=== PATIENT | male | born 1975 | race Two or more races ===

== ENCOUNTER 2017-07-31 07:12 | Day surgery (SDC) | payer OTHER | END 2017-07-31 11:30 | disposition home or self-care (01) | LOC: AMB-ENDOS 07:12 | DX: D12.0 Benign neoplasm of cecum (principal); D12.5 Benign neoplasm of sigmoid colon; K64.8 Other hemorrhoids; K57.32 Diverticulitis of large intestine without perforation or abscess without bleeding ==

== ENCOUNTER 2023-06-13 13:18 | Inpatient (IN) | payer OTHER ==
[~2023-06-13] VITALS: Ht 109.2 cm; Wt 117.9 kg
[2023-06-13] MEDS ORDERED: COZAAR100 MG (13:20)
--- NOTE | 2023-06-13 13:27 | NUR ---
SE RECIBE PTE ALERTA Y ORIENTADO X3. PTE PRESENTA DOLOR ABDOMINAL DESDE EL RAHUL DE FAUST[place] SKY QUE EN EL RAHUL DE HOY SE INTENSIFICO Y JSOE NO PUEDE NI CAMINAR. SE MIDEN S/V BP 170/100 SE REALIZA EKG Y SE PRESENTA. SE UBICA A PTE EN OBSERVACION.
[2023-06-13] MEDS ORDERED: FAMOTIDINE/PF 20 MG/2 ML VIAL IV ONE (16:15)
[2023-06-13] MEDS ORDERED: ONDANSETRON HCL 2 MG/ML VIAL IV ONE (16:15)
[2023-06-13] MEDS ORDERED: 0.9 % SODIUM CHLORIDE 500 ML IV SCH (16:15)
[2023-06-13] MEDS ORDERED: MORPHINE SULFATE 4 MG/ML VIAL IV ONE (16:15)
--- NOTE | 2023-06-13 16:19 | NUR ---
RN CELESTE ORIENTA PTE SOBRE TRATAMIENTO A REALIZAR EL CUAL REFIERE ENTENDER Y ACEPTAR. SE CANALIZA BRAZO JENN Y SE MARTHA MUESTRAS Y SE ADMINISTRA MEDICAMENTO POR ORDEN MEDICA BAJO MEDIDAS ASEPTICAS. PTE PENDIENTE A CT
[2023-06-13 16:35] LABS: HEMATOCRIT 45.9 % (39.0-48.0); HEMOGLOBIN 15.9 g/dL (13-16.00); MEAN CELL VOLUME 91.8 fL (80.0-100.00); MEAN CORPUSCULAR HEMOGLOBIN 31.7 pg (27.00-32.0); MEAN CORPUSCULAR HGB CONC 34.6 g/dl (32.0-36.0); PLATELET COUNT 218 K/uL (150-450); RED CELL DISTRIBUTION WIDTH 13.9 % (11.5-14.5)
[2023-06-13 16:52] LABS: CALCIUM 9.1 mg/dL (8.5-10.1); CREATININE SERUM 1.27 mg/dL (0.70-1.30); GFR 61.05; POTASSIUM 3.56 mEq/L (3.5-5.1)
[2023-06-13 16:56] LABS: INR 1.36; PARTIAL THROMBOPLASTIN TIME 31.6 SECONDS (22.0-34.0)
[2023-06-13 17:12] LABS: URINE APPEARANCE Clear; URINE BILIRRUBIN Small (NEGATIVE); URINE BLOOD Large; URINE COLOR Orange; URINE GLUCOSE Negative (NEGATIVE); URINE LEUKOCYTE Small; URINE NITRATE Positive
[2023-06-13 17:15] LABS: URINE BACTERIA 75.5 uL (0.0-1933); URINE EPITHELIAL CELLS 13.4 uL (0.0-38.8); URINE RBC 562.2 uL (0.0-20.8); URINE WBC 13.2 uL (0.0-23.2)
[2023-06-13 17:32] LABS: URINE PROTEIN 300 (NEGATIVE)
[2023-06-13] MEDS ORDERED: PIPERACILLIN/TAZOBACTAM SODIUM 3.375 GM VIAL IV ONE (19:45)
[2023-06-13] MEDS ORDERED: ACETAMINOPHEN 500 MG GEL..CAP PO PRN (20:15)
[2023-06-13] MEDS ORDERED: ENALAPRILAT DIHYDRATE 1.25 MG/ML VIAL IV PRN (20:15)
[2023-06-13] MEDS ORDERED: 0.9 % SODIUM CHLORIDE 1,000 ML IV SCH (20:15)
[2023-06-13] MEDS ORDERED: ONDANSETRON HCL 4 MG in 0.9 % SODIUM CHLORIDE 50 ML IV PRN (20:15)
[2023-06-13 21:41] LABS: MAGNESIUM 1.8 mg/dL (1.8-2.4)
[2023-06-13 21:43] LABS: C-REACTIVE PROTEIN 24.5 MG/DL (0.00-0.29)
[2023-06-13] MEDS ORDERED: KETOROLAC TROMETHAMINE 15 MG VIAL IV STA (21:51)
[2023-06-13 22:22] LABS: ABG PH 7.387 (7.35-7.45); ABG PO2 98.9 mmHg (80-100); ABG pCO2 38.7 mmHg (35-45); BASE EXCESS -1.9 mmol/l; BICARBONATE 22.8 mmol/l (23-25); SaO2 97.5 %; o2 36 %
[2023-06-13 22:23] LABS: allen test SATISFACTORY; puncture site RADIAL RIGHT
[2023-06-13] MEDS ORDERED: NITROGLYCERIN IN 5 % DEXTROSE 250 ML IV SCH (22:40)
[2023-06-13] MEDS ORDERED: MORPHINE SULFATE 2 MG/ML CARTRIDGE IV ONE (22:45)
[2023-06-13] MEDS ORDERED: hydrOXYzine PAMOATE 25 MG CAPSULE PO ONE (23:15)
[2023-06-14] MEDS ORDERED: PIPERACILLIN/TAZOBACTAM SODIUM 3.375 GM in DEXTROSE 5 % IN WATER 100 ML IV SCH
[2023-06-14] MEDS ORDERED: MORPHINE SULFATE 4 MG/ML CARTRIDGE IV SCH (02:00)
[2023-06-14] MEDS ORDERED: FAMOTIDINE/PF 20 MG in 0.9 % SODIUM CHLORIDE 8 ML IV PUSH SCH ×2 (09:00→21:00)
[2023-06-14] MEDS ORDERED: ENOXAPARIN SODIUM 40 MG/0.4 ML SYRINGE SUBCUTANEO SCH (09:00)
[2023-06-14] MEDS ORDERED: MEROPENEM 500 MG/VIAL VIAL IV SCH (14:00)
[2023-06-14] MEDS ORDERED: LEVALBUTEROL HCL 0.63 MG/3 ML SOLUTION IH SCH (14:06)
[2023-06-14] MEDS ORDERED: MEPERIDINE HCL/PF 50 MG/ML VIAL IV SCH (14:06)
[2023-06-14] MEDS ORDERED: MEPERIDINE HCL/PF 25 MG/ML VIAL IV ONE (14:15)
[2023-06-14 14:59] LABS: ABG PH 7.368 (7.35-7.45); ABG PO2 64.9 mmHg (80-100); ABG pCO2 46.8 mmHg (35-45); BASE EXCESS -0.9 mmol/l; BICARBONATE 24.6 mmol/l (23-25); SaO2 91.6 %; allen test SATISFACTORY; puncture site RADIAL RIGHT
[2023-06-14 15:00] LABS: o2 21 %
[2023-06-14] MEDS ORDERED: VANCOMYCIN HCL 5 MG/ML REDILUIDO IV SCH (17:00)
[2023-06-14] MEDS ORDERED: IPRATROPIUM BROMIDE 0.5 MG/2.5 ML AMPUL.NEB IH SCH (17:00)
[2023-06-14] MEDS ORDERED: AA 4.25%/CAL/LYTES/DEXT 5% 1,000 ML PERIFERAL SCH (17:00)
[2023-06-14 17:01] LABS: CALCIUM 8.3 mg/dL (8.5-10.1); CHOL HDL RATIO 3.3 (0-5.0); CREATININE SERUM 1.19 mg/dL (0.70-1.30); GFR 65.81; POTASSIUM 3.63 mEq/L (3.5-5.1)
[2023-06-14] MEDS ORDERED: METHYLPREDNISOLONE SOD SUCC 125 MG VIAL IV ONE (18:15)
[2023-06-14] MEDS ORDERED: FUROsemide 20 MG/2 ML VIAL IV ONE (19:45)
[2023-06-15 06:14] LABS: HEMATOCRIT 37.8 % (39.0-48.0); HEMOGLOBIN 13.1 g/dL (13-16.00); MEAN CELL VOLUME 92.2 fL (80.0-100.00); MEAN CORPUSCULAR HEMOGLOBIN 31.9 pg (27.00-32.0); MEAN CORPUSCULAR HGB CONC 34.5 g/dl (32.0-36.0); PLATELET COUNT 220 K/uL (150-450); RED CELL DISTRIBUTION WIDTH 14.1 % (11.5-14.5)
[2023-06-15 06:36] LABS: ALBUMIN 2.5 gm/dL (3.4-5.0); BILIRUBIN TOTAL 0.51 mg/dL (0.3-1.2); CALCIUM 8.2 mg/dL (8.5-10.1); CREATININE SERUM 1.1 mg/dL (0.70-1.30); GFR 72.06; GLOBULINA 3.4 G/DL (2.4-3.5); MAGNESIUM 2.3 mg/dL (1.8-2.4); POTASSIUM 3.71 mEq/L (3.5-5.1); TOTAL PROTEIN 5.9 gm/dL (6.4-8.2)
[2023-06-15 06:37] LABS: C-REACTIVE PROTEIN 31.7 MG/DL (0.00-0.29)
[2023-06-15 06:39] LABS: PHOSPHOROUS 1.3 mg/dL (2.5-4.9)
[2023-06-15 11:06] LABS: PLATELET ESTIMATE NORMAL (NORMAL)
[2023-06-15] MEDS ORDERED: POTASSIUM PHOS,M-BASIC-D-BASIC 15 MM in 0.9 % SODIUM CHLORIDE 250 ML IV ONE (12:00)
[2023-06-16] MEDS ORDERED: ENALAPRILAT DIHYDRATE 1.25 MG/ML VIAL IV SCH (01:00)
[2023-06-16] MEDS ORDERED: PANTOPRAZOLE SODIUM 40 MG/VIAL VIAL IV SCH (09:45)
[2023-06-16 10:07] LABS: HEMATOCRIT 39.9 % (39.0-48.0); HEMOGLOBIN 13.2 g/dL (13-16.00); MEAN CELL VOLUME 91.6 fL (80.0-100.00); MEAN CORPUSCULAR HEMOGLOBIN 30.4 pg (27.00-32.0); MEAN CORPUSCULAR HGB CONC 33.2 g/dl (32.0-36.0); PLATELET COUNT 273 K/uL (150-450); RED BLOOD COUNT 4.36 M/uL (4.00-6.00); RED CELL DISTRIBUTION WIDTH 14.5 % (11.5-14.5)
[2023-06-16 10:37] LABS: ALBUMIN 2.6 gm/dL (3.4-5.0); BILIRUBIN TOTAL 0.44 mg/dL (0.3-1.2); CALCIUM 8.3 mg/dL (8.5-10.1); CREATININE SERUM 0.92 mg/dL (0.70-1.30); GFR 88.57; GLOBULINA 3.5 G/DL (2.4-3.5); MAGNESIUM 2.3 mg/dL (1.8-2.4); POTASSIUM 3.53 mEq/L (3.5-5.1); TOTAL PROTEIN 6.1 gm/dL (6.4-8.2)
[2023-06-16 10:58] LABS: C-REACTIVE PROTEIN 17.9 MG/DL (0.00-0.29); PHOSPHOROUS 1.6 mg/dL (2.5-4.9)
[2023-06-16] MEDS ORDERED: MEPERIDINE HCL/PF 50 MG/ML VIAL IV SCH (13:00)
[2023-06-16] MEDS ORDERED: POTASSIUM PHOS,M-BASIC-D-BASIC 18 MM in 0.9 % SODIUM CHLORIDE 250 ML IV ONE (13:45)
[2023-06-16] MEDS ORDERED: CLEVIDIPINE BUTYRATE 100 ML IV SCH (14:00)
[2023-06-17] MEDS ORDERED: METHYLPREDNISOLONE SOD SUCC 40 MG VIAL IV STA (10:51)
[2023-06-17] MEDS ORDERED: LEVALBUTEROL HCL 0.63 MG/3 ML SOLUTION IH SCH (12:00)
[2023-06-17] MEDS ORDERED: IPRATROPIUM BROMIDE 0.5 MG/2.5 ML AMPUL.NEB IH SCH (12:00)
[2023-06-17] MEDS ORDERED: FUROsemide 40 MG/4 ML VIAL IV STA (12:18)
[2023-06-17] MEDS ORDERED: ENALAPRILAT DIHYDRATE 1.25 MG/ML VIAL IV SCH (18:00)
[2023-06-18 06:29] LABS: HEMOGLOBIN 16.4 g/dL (13-16.00); MEAN CELL VOLUME 91.1 fL (80.0-100.00); MEAN CORPUSCULAR HEMOGLOBIN 38.3 pg (27.00-32.0); PLATELET COUNT 374 K/uL (150-450); RED BLOOD COUNT 4.28 M/uL (4.00-6.00); RED CELL DISTRIBUTION WIDTH 15.4 % (11.5-14.5)
[2023-06-18] MEDS ORDERED: SODIUM CHLORIDE 0.45 % 1,000 ML IV SCH (08:15)
[2023-06-18] MEDS ORDERED: MORPHINE SULFATE 4 MG/ML VIAL IV SCH (13:51)
[2023-06-18] MEDS ORDERED: VANCOMYCIN HCL 5 MG/ML REDILUIDO IV SCH (17:00)
[2023-06-19] MEDS ORDERED: CHLORHEXIDINE GLUCONATE 120 ML BOTTLE TOP ONE (11:00)
[2023-06-20 08:01] LABS: HEMATOCRIT 39.9 % (39.0-48.0); HEMOGLOBIN 13.5 g/dL (13-16.00); MEAN CELL VOLUME 91.5 fL (80.0-100.00); MEAN CORPUSCULAR HEMOGLOBIN 31.1 pg (27.00-32.0); PLATELET COUNT 182 K/uL (150-450); RED BLOOD COUNT 4.35 M/uL (4.00-6.00); RED CELL DISTRIBUTION WIDTH 14.9 % (11.5-14.5)
[2023-06-20 08:22] LABS: ALBUMIN 2.3 gm/dL (3.4-5.0); BILIRUBIN TOTAL 0.86 mg/dL (0.3-1.2); CALCIUM 7.8 mg/dL (8.5-10.1); CREATININE SERUM 0.86 mg/dL (0.70-1.30); GFR 95.74; GLOBULINA 3.4 G/DL (2.4-3.5); POTASSIUM 3.72 mEq/L (3.5-5.1); TOTAL PROTEIN 5.7 gm/dL (6.4-8.2)
[2023-06-20] MEDS ORDERED: fentaNYL CITRATE 50 MCG/ML AMPUL IV PUSH ONE ×2 (17:00→20:00)
[2023-06-20] MEDS ORDERED: MIDAZOLAM HCL 2 MG/2 ML VIAL IV PUSH ONE (17:00)
[2023-06-20] MEDS ORDERED: MORPHINE SULFATE 4 MG/ML CARTRIDGE IV SCH (17:00)
[2023-06-20] MEDS ORDERED: LOSARTAN POTASSIUM 50 MG TABLET PO SCH (21:24)
[2023-06-21 06:28] LABS: HEMATOCRIT 37.7 % (39.0-48.0); HEMOGLOBIN 12.9 g/dL (13-16.00); MEAN CELL VOLUME 91.8 fL (80.0-100.00); MEAN CORPUSCULAR HEMOGLOBIN 31.4 pg (27.00-32.0); MEAN CORPUSCULAR HGB CONC 34.2 g/dl (32.0-36.0); PLATELET COUNT 146 K/uL (150-450); RED BLOOD COUNT 4.11 M/uL (4.00-6.00); RED CELL DISTRIBUTION WIDTH 14.5 % (11.5-14.5)
[2023-06-21 06:57] LABS: CALCIUM 7.6 mg/dL (8.5-10.1); CREATININE SERUM 0.82 mg/dL (0.70-1.30); GFR 101.15; POTASSIUM 3.48 mEq/L (3.5-5.1)
[2023-06-21] MEDS ORDERED: NIFEDIPINE 30 MG TAB.SA.OSM PO SCH (09:00)
[2023-06-21] MEDS ORDERED: LOSARTAN POTASSIUM 50 MG TABLET PO ONE (14:15)
[2023-06-21] MEDS ORDERED: hydrALAZINE HCL 20 MG VIAL IV SCH (18:00)
[2023-06-22 07:02] LABS: HEMATOCRIT 35.2 % (39.0-48.0); HEMOGLOBIN 12.2 g/dL (13-16.00); MEAN CELL VOLUME 90.5 fL (80.0-100.00); MEAN CORPUSCULAR HEMOGLOBIN 31.4 pg (27.00-32.0); MEAN CORPUSCULAR HGB CONC 34.7 g/dl (32.0-36.0); RED BLOOD COUNT 3.89 M/uL (4.00-6.00); RED CELL DISTRIBUTION WIDTH 14.6 % (11.5-14.5)
[2023-06-22 07:05] LABS: PLATELET COUNT 129 K/uL (150-450)
[2023-06-22 07:24] LABS: CALCIUM 7.6 mg/dL (8.5-10.1); CREATININE SERUM 0.75 mg/dL (0.70-1.30); GFR 112.12; MAGNESIUM 2.9 mg/dL (1.8-2.4); PHOSPHOROUS 3.3 mg/dL (2.5-4.9); POTASSIUM 3.61 mEq/L (3.5-5.1)
[2023-06-22] MEDS ORDERED: NIFEDIPINE 60 MG TAB.SA.OSM PO SCH (09:00)
[2023-06-22] MEDS ORDERED: LOSARTAN POTASSIUM 50 MG TABLET PO SCH (09:00)
[2023-06-23] MEDS ORDERED: DOXAZOSIN MESYLATE 2 MG TABLET PO SCH (17:00)
[2023-06-24 07:29] LABS: HEMATOCRIT 33.6 % (39.0-48.0); HEMOGLOBIN 11.5 g/dL (13-16.00); MEAN CELL VOLUME 92.3 fL (80.0-100.00); MEAN CORPUSCULAR HEMOGLOBIN 31.6 pg (27.00-32.0); MEAN CORPUSCULAR HGB CONC 34.3 g/dl (32.0-36.0); PLATELET COUNT 140 K/uL (150-450); RED BLOOD COUNT 3.64 M/uL (4.00-6.00); RED CELL DISTRIBUTION WIDTH 14.4 % (11.5-14.5)
[2023-06-24 07:31] LABS: CALCIUM 7.7 mg/dL (8.5-10.1); CREATININE SERUM 0.7 mg/dL (0.70-1.30); GFR 121.41; MAGNESIUM 2.3 mg/dL (1.8-2.4); PHOSPHOROUS 2.8 mg/dL (2.5-4.9); POTASSIUM 3.57 mEq/L (3.5-5.1)
[2023-06-24] MEDS ORDERED: Cyanocobalamin/Mecobalamin 1 TAB.SL SL SCH (09:00)
[2023-06-24] MEDS ORDERED: SOD FERRIC GLUC COMPLX/SUCROSE 62.5 MG in 0.9 % SODIUM CHLORIDE 50 ML IV SCH (09:00)
[2023-06-24 09:08] LABS: MANUAL PLATELET COUNT 246
[2023-06-25] MEDS ORDERED: MORPHINE SULFATE 4 MG/ML VIAL IV SCH (01:00)
[2023-06-25 06:17] LABS: HEMATOCRIT 33.1 % (39.0-48.0); HEMOGLOBIN 11.3 g/dL (13-16.00); MEAN CORPUSCULAR HEMOGLOBIN 31.1 pg (27.00-32.0); MEAN CORPUSCULAR HGB CONC 34.2 g/dl (32.0-36.0); PLATELET COUNT 147 K/uL (150-450); RED BLOOD COUNT 3.64 M/uL (4.00-6.00); RED CELL DISTRIBUTION WIDTH 14.2 % (11.5-14.5)
[2023-06-25 06:52] LABS: ALBUMIN 2.2 gm/dL (3.4-5.0); BILIRUBIN TOTAL 0.84 mg/dL (0.3-1.2); BILIRUBIN,CONJUGATED 0.28 mg/dL (0.0-0.2); BILIRUBIN,UNCONJUGATED 0.56 mg/dL (0.0-0.6); CALCIUM 7.8 mg/dL (8.5-10.1); CHOL HDL RATIO 5.4 (0-5.0); CREATININE SERUM 0.71 mg/dL (0.70-1.30); GFR 119.44; GLOBULINA 3.5 G/DL (2.4-3.5); MAGNESIUM 2.2 mg/dL (1.8-2.4); POTASSIUM 3.63 mEq/L (3.5-5.1); TOTAL PROTEIN 5.7 gm/dL (6.4-8.2)
[2023-06-25 07:11] LABS: INR 1.13; PARTIAL THROMBOPLASTIN TIME 25.9 SECONDS (22.0-34.0); PROTHROMBIN TIME 11.8 SECONDS (9.0-11.5)
[2023-06-25 08:41] LABS: UREA CLEARANCE 55.8 ML/MIN
[2023-06-25] MEDS ORDERED: MORPHINE SULFATE 4 MG/ML CARTRIDGE IV SCH (09:00)
[2023-06-25] MEDS ORDERED: FAMOTIDINE/PF 20 MG in 0.9 % SODIUM CHLORIDE 100 ML IV SCH (09:00)
[2023-06-25] MEDS ORDERED: IOHEXOL 350 mgI/ML 50ML BOTT PO ONE (09:45)
[2023-06-25] MEDS ORDERED: LACTOBACILLUS ACIDOPHILUS 1 CAP CAP PO SCH (14:27)
[2023-06-25] MEDS ORDERED: AMINO ACIDS 1 EACH TABLET PO SCH (17:00)
[2023-06-25] MEDS ORDERED: CEFTRIAXONE SODIUM 2,000 MG VIAL IV SCH (17:00)
[2023-06-25] MEDS ORDERED: METRONIDAZOLE/SODIUM CHLORIDE 100 ML IV SCH (17:00)
[2023-06-25] MEDS ORDERED: FUROsemide 20 MG/2 ML VIAL IV SCH (18:25)
[2023-06-26] MEDS ORDERED: LOSARTAN POTASSIUM 100 MG TABLET PO SCH (09:00)
[2023-06-26] MEDS ORDERED: NIFEDIPINE 90 MG TAB.SA.OSM PO SCH (09:00)
[2023-06-28] MEDS ORDERED: SOD FERRIC GLUC COMPLX/SUCROSE 62.5 MG/5 ML AMPUL IV ONE (08:25)
[2023-06-29 06:54] LABS: HEMOGLOBIN 11.3 g/dL (13-16.00); MEAN CORPUSCULAR HEMOGLOBIN 31.1 pg (27.00-32.0); MEAN CORPUSCULAR HGB CONC 34.2 g/dl (32.0-36.0); PLATELET COUNT 300 K/uL (150-450); RED BLOOD COUNT 3.63 M/uL (4.00-6.00); RED CELL DISTRIBUTION WIDTH 14.8 % (11.5-14.5)
[2023-06-29 07:09] LABS: ALBUMIN 2.5 gm/dL (3.4-5.0); BILIRUBIN TOTAL 0.47 mg/dL (0.3-1.2); CALCIUM 8.3 mg/dL (8.5-10.1); CREATININE SERUM 0.89 mg/dL (0.70-1.30); GFR 92.02; GLOBULINA 3.6 G/DL (2.4-3.5); MAGNESIUM 2.3 mg/dL (1.8-2.4); PHOSPHOROUS 3.4 mg/dL (2.5-4.9); POTASSIUM 3.99 mEq/L (3.5-5.1); TOTAL PROTEIN 6.1 gm/dL (6.4-8.2)
[2023-06-29 07:15] LABS: C-REACTIVE PROTEIN 7.28 MG/DL (0.00-0.29)
[2023-06-29] MEDS ORDERED: MIDAZOLAM HCL 2 MG/2 ML VIAL IV ONE (20:15)
[2023-06-29] MEDS ORDERED: FentaNYL CITRATE/PF 50MCG/ML 2ML VIAL IJ ONE (20:15)
[2023-06-29] MEDS ORDERED: MORPHINE SULFATE 2 MG/ML CARTRIDGE IV ONE (21:15)
[2023-06-30] MEDS ORDERED: MORPHINE SULFATE 4 MG/ML CARTRIDGE IV PRN (11:15)
[2023-06-30] MEDS ORDERED: ACETAMINOPHEN 500 MG GEL..CAP PO SCH (12:00)
[2023-07-02 07:03] LABS: CALCIUM 8.5 mg/dL (8.5-10.1); CREATININE SERUM 0.83 mg/dL (0.70-1.30); GFR 99.74; POTASSIUM 3.91 mEq/L (3.5-5.1)
[2023-07-02 07:33] LABS: HEMOGLOBIN 11.2 g/dL (13-16.00); MEAN CELL VOLUME 91.4 fL (80.0-100.00); MEAN CORPUSCULAR HGB CONC 33.9 g/dl (32.0-36.0); PLATELET COUNT 365 K/uL (150-450); RED BLOOD COUNT 3.61 M/uL (4.00-6.00); RED CELL DISTRIBUTION WIDTH 14.6 % (11.5-14.5)
[2023-07-02] MEDS ORDERED: VANCOMYCIN HCL 5 MG/ML REDILUIDO IV SCH (17:00)
[2023-07-03] MEDS ORDERED: VANCOMYCIN HCL 5 MG/ML REDILUIDO IV SCH (09:00)
[2023-07-05 05:33] LABS: HEMATOCRIT 31.8 % (39.0-48.0); MEAN CELL VOLUME 92.3 fL (80.0-100.00); MEAN CORPUSCULAR HGB CONC 35.2 g/dl (32.0-36.0); PLATELET COUNT 328 K/uL (150-450); RED BLOOD COUNT 3.45 M/uL (4.00-6.00); RED CELL DISTRIBUTION WIDTH 14.7 % (11.5-14.5)
[2023-07-05 05:34] LABS: HEMOGLOBIN 11.2 g/dL (13-16.00); MEAN CORPUSCULAR HEMOGLOBIN 32.4 pg (27.00-32.0)
[2023-07-05 06:00] LABS: ALBUMIN 2.6 gm/dL (3.4-5.0); BILIRUBIN TOTAL 0.33 mg/dL (0.3-1.2); CALCIUM 8.5 mg/dL (8.5-10.1); CREATININE SERUM 0.88 mg/dL (0.70-1.30); GFR 93.23; GLOBULINA 3.4 G/DL (2.4-3.5); MAGNESIUM 1.6 mg/dL (1.8-2.4); PHOSPHOROUS 3.7 mg/dL (2.5-4.9); POTASSIUM 3.74 mEq/L (3.5-5.1)
[2023-07-05 06:24] LABS: C-REACTIVE PROTEIN 1.55 MG/DL (0.00-0.29)
[2023-07-05] MEDS ORDERED: IOHEXOL 350 mgI/ML 50ML BOTT PO ONE (12:45)
[2023-07-05] MEDS ORDERED: MAGNESIUM SULFATE IN WATER 4 GM/100 ML PIGGYBACK IV ONE (18:22)
[2023-07-05] MEDS ORDERED: FAMOtidine 20 MG TABLET PO SCH (21:00)
== END 2023-07-07 13:13 | disposition home or self-care (01) | DRG 871 ==
LOC: ER 13:20 → MEDI 20:20 → ICU-2 20:20 → ICU 06-14 20:43 → SURH 06-22 21:47
PROVIDERS: General Practice; Internal Medicine; Internal Medicine Geriatric Medicine; Internal Medicine Infectious Disease; ADMIT Internal Medicine; ATTEND Internal Medicine
PROC: BW21YZZ Computerized Tomography (CT Scan) of Abdomen and Pelvis using Other Contrast (ICD-10-PCS; 2023-06-13)
PROC: B24BYZZ Ultrasonography of Heart with Aorta using Other Contrast (ICD-10-PCS; 2023-06-13)
PROC: 02HV33Z Insertion of Infusion Device into Superior Vena Cava, Percutaneous Approach (ICD-10-PCS; 2023-06-14)
PROC: BW21YZZ Computerized Tomography (CT Scan) of Abdomen and Pelvis using Other Contrast (ICD-10-PCS; 2023-06-19)
PROC: BW24YZZ Computerized Tomography (CT Scan) of Chest and Abdomen using Other Contrast (ICD-10-PCS; 2023-06-19)
PROC: 0W9G30Z Drainage of Peritoneal Cavity with Drainage Device, Percutaneous Approach (ICD-10-PCS; principal; 2023-06-20)
PROC: BW21YZZ Computerized Tomography (CT Scan) of Abdomen and Pelvis using Other Contrast (ICD-10-PCS; 2023-06-25)
PROC: 0W9G3ZX Drainage of Peritoneal Cavity, Percutaneous Approach, Diagnostic (ICD-10-PCS; 2023-06-29)
PROC: BW21YZZ Computerized Tomography (CT Scan) of Abdomen and Pelvis using Other Contrast (ICD-10-PCS; 2023-07-05)
DX: A41.9 Sepsis, unspecified organism (principal); K65.1 Peritoneal abscess; K57.92 Diverticulitis of intestine, part unspecified, without perforation or abscess without bleeding; N39.0 Urinary tract infection, site not specified; J81.1 Chronic pulmonary edema; J90 Pleural effusion, not elsewhere classified; N17.9 Acute kidney failure, unspecified; R65.10 Systemic inflammatory response syndrome (SIRS) of non-infectious origin without acute organ dysfunction; K52.9 Noninfective gastroenteritis and colitis, unspecified; I11.9 Hypertensive heart disease without heart failure; B96.20 Unspecified Escherichia coli [E. coli] as the cause of diseases classified elsewhere; E66.9 Obesity, unspecified; Z68.39 Body mass index [BMI] 39.0-39.9, adult

== ENCOUNTER 2023-12-19 09:17 | Outpatient (CLI) | payer OTHER ==
[~2023-12-19 09:17] MED LIST: COZAAR100 MG; HYDROCHLOROTHIA25 MG PO; HYOSCYAMINE0.125 M1 SL; INTESTINEX680 M1 PO; NIFEDIPINE20 MG; PEPCID AC20 MG PO; TRAM1TAB98 PO; [UNRECOGNIZED DRUG - OTHER]
[2023-12-19 10:22] LABS: HEMOGLOBIN 14.6 g/dL (13-16.00); MEAN CELL VOLUME 92.1 fL (80.0-100.00); MEAN CORPUSCULAR HEMOGLOBIN 31.9 pg (27.00-32.0); MEAN CORPUSCULAR HGB CONC 34.7 g/dl (32.0-36.0); PLATELET COUNT 192 K/uL (150-450); RED BLOOD COUNT 4.56 M/uL (4.00-6.00); RED CELL DISTRIBUTION WIDTH 13.7 % (11.5-14.5)
[2023-12-19 11:24] LABS: % SATURACION 53.8 % (20-50); ALBUMIN 3.9 gm/dL (3.4-5.0); BILIRUBIN TOTAL 0.72 mg/dL (0.3-1.2); CALCIUM 8.9 mg/dL (8.5-10.1); CHOL HDL RATIO 2.7 (0-5.0); CREATININE SERUM 1.16 mg/dL (0.70-1.30); FERRITIN 148.8 NG/ML (26-388); GFR 67.78; GLOBULINA 3.2 G/DL (2.4-3.5); POTASSIUM 3.56 mEq/L (3.5-5.1); PROSTATIC SPECIFIC ANTIGEN 2.72 NG/ML (0.010-4.00); TOTAL PROTEIN 7.1 gm/dL (6.4-8.2); TSH 2.51 uIU/mL (0.358-3.74)
[2023-12-19 12:52] LABS: FOLIC ACID 16.4 ng/ml (4.78-20)
== END 2023-12-19 09:57 | disposition home or self-care (01) ==
LOC: LAB 09:17
PROVIDERS: ATTEND Internal Medicine Hematology & Oncology
DX: D64.9 Anemia, unspecified (principal); R10.9 Unspecified abdominal pain; E03.9 Hypothyroidism, unspecified; E78.5 Hyperlipidemia, unspecified; E11.9 Type 2 diabetes mellitus without complications; R73.09 Other abnormal glucose; I50.22 Chronic systolic (congestive) heart failure; I10 Essential (primary) hypertension; D50.8 Other iron deficiency anemias; R74.02 Elevation of levels of lactic acid dehydrogenase [LDH]; K76.89 Other specified diseases of liver; R97.0 Elevated carcinoembryonic antigen [CEA]; K57.30 Diverticulosis of large intestine without perforation or abscess without bleeding; Z53.1 Procedure and treatment not carried out because of patient's decision for reasons of belief and group pressure

== ENCOUNTER 2024-04-16 09:32 | Outpatient (CLI) | payer OTHER ==
[2024-04-16 10:49] LABS: HEMATOCRIT 46.7 % (39.0-48.0); HEMOGLOBIN 16.4 g/dL (13-16.00); MEAN CELL VOLUME 90.8 fL (80.0-100.00); MEAN CORPUSCULAR HGB CONC 35.2 g/dl (32.0-36.0); PLATELET COUNT 213 K/uL (150-450); RED BLOOD COUNT 5.14 M/uL (4.00-6.00); RED CELL DISTRIBUTION WIDTH 13.4 % (11.5-14.5)
[2024-04-16 11:06] LABS: PARTIAL THROMBOPLASTIN TIME 30.5 SECONDS (22.0-34.0); PROTHROMBIN TIME 10.9 SECONDS (9.0-11.5)
[2024-04-16 11:39] LABS: ALBUMIN 3.9 gm/dL (3.4-5.0); BILIRUBIN TOTAL 0.62 mg/dL (0.3-1.2); CALCIUM 9.6 mg/dL (8.5-10.1); CHOL HDL RATIO 2.9 (0-5.0); CREATININE SERUM 1.18 mg/dL (0.70-1.30); GFR 66.46; GLOBULINA 3.4 G/DL (2.4-3.5); POTASSIUM 3.96 mEq/L (3.5-5.1); TOTAL PROTEIN 7.3 gm/dL (6.4-8.2); TSH 2.69 uIU/mL (0.358-3.74)
== END 2024-04-16 09:45 | disposition home or self-care (01) ==
LOC: LAB 09:32
PROVIDERS: ATTEND Internal Medicine
DX: D64.9 Anemia, unspecified (principal); R10.9 Unspecified abdominal pain; E03.9 Hypothyroidism, unspecified; E78.5 Hyperlipidemia, unspecified; E11.9 Type 2 diabetes mellitus without complications; I50.22 Chronic systolic (congestive) heart failure; Z79.01 Long term (current) use of anticoagulants; I10 Essential (primary) hypertension